=== PATIENT | female | born 2000 | race Caucasian/White ===

== ENCOUNTER 2022-06-06 05:23 | Inpatient (IN) ==
[~2022-06-06 05:23] MED LIST: *HR* Nalbuphine 10 MG/ML AMPUL ONE; Ondansetron 4 MG/2 ML VIAL ONE; Ringers Solution, Lactated 1,000 ML ONE
[2022-06-06] MEDS ORDERED: Epidural Premix (fent/bupiv) 110 ML EP ONE (05:37)
[2022-06-06] MEDS ORDERED: *HR* FentaNYL (PF) 100 MCG/2 ML VIAL ONE (05:38)
[2022-06-06] MEDS ORDERED: Ropivacaine/PF 0.2% 20 ML VIAL ONE (05:38)
[2022-06-06] MEDS ORDERED: Azithromycin 500 MG in 0.9 % Sodium Chloride 250 ML IVPB PRN (06:12)
[2022-06-06] MEDS ORDERED: *HR* Nalbuphine 10 MG/ML AMPUL IV PRN (06:12)
[2022-06-06] MEDS ORDERED: Famotidine 20 MG/2 ML VIAL IVP PRN (06:12)
[2022-06-06] MEDS ORDERED: Metoclopramide 10 MG/2 ML VIAL IVP PRN (06:12)
[2022-06-06] MEDS ORDERED: Naloxone 0.4 MG/ML INJ IVP PRN (06:12)
[2022-06-06] MEDS ORDERED: Ondansetron 4 MG/2 ML VIAL IVP PRN (06:12)
[2022-06-06] MEDS ORDERED: EPHEDrine sulfate 50 MG/10 ML VIAL IVP PRN (06:17)
[2022-06-06] MEDS ORDERED: Epidural Premix (fent/bupiv) 110 ML EP SCH (06:30)
[2022-06-06] MEDS ORDERED: Oxytocin 30 UNIT/503 ML BAG IVC ONE (08:20)
[2022-06-06] MEDS ORDERED: Ringers Solution, Lactated 1,000 ML IVC SCH (09:30)
[2022-06-06 15:20] LABS: Amphetamine Screen,Urine Negative ng/mL (Cutoff=1000); Barbiturate Screen,Urine Negative ng/mL (Cutoff=200); Benzodiazepines Screen,Urine Negative ng/mL (Cutoff=200); Cannabinoid Screen,Urine Negative ng/mL (Cutoff = 50); Cocaine Screen,Urine Negative ng/mL (Cutoff= 300); Opiate Screen,Urine Negative ng/mL (Cutoff=300); Phencyclidine Screen,Urine Negative ng/mL (Cutoff=25)
[2022-06-06] MEDS ORDERED: Measles/Mumps/Rubella Vacc 0.5 ML VIAL SQ PRN (16:05)
[2022-06-06] MEDS ORDERED: Benzocaine/Menthol 56 GM AEROSOL SPRAY TP PRN (16:05)
[2022-06-06] MEDS ORDERED: Lanolin 7 G OINT...G. TP PRN (16:05)
[2022-06-06] MEDS ORDERED: Ondansetron ODT 4 MG TAB.RAPDIS SL PRN (16:05)
[2022-06-06] MEDS ORDERED: Oxytocin 30 UNIT/503 ML BAG IVC SCH (16:05)
[2022-06-06] MEDS ORDERED: OXYTOCIN/RINGERS LACTATE 10 UNIT/166.6 ML BAG IVC ONE (16:05)
[2022-06-06] MEDS ORDERED: Rho Immune Globulin 1,500 UNIT SYRINGE IM PRN (16:05)
[2022-06-06] MEDS: Acetaminophen 325 MG TABLET PO SCH ×2 (16:52→21:04)
[2022-06-07] MEDS: Acetaminophen 325 MG TABLET PO SCH ×2 (02:47→08:29)
[2022-06-07 04:15] LABS: Basophils % 0.3 %; Eosinophils # 0.1 K/mcL (0.0-0.6); Eosinophils % 0.6 %; Hemoglobin 10.7 g/dL (11.5-15.4); Immature Granulocytes % 1.9 % (0-4); Lymphocytes # 1.4 K/mcL (0.6-4.6); Lymphocytes % 10.1 %; Mean Corpuscular HGB Conc 33.4 g/dL (31.6-35.5); Mean Corpuscular Volume 98.8 fL (83.0-100.0); Mean Platelet Volume 11.6 fL (9.4-12.4); Monocytes # 0.8 K/mcL (0.0-1.3); Monocytes % 5.4 %; Neutrophils # 11.7 K/mcL (1.6-8.9); Platelet Count 177 K/mcL (140-400); Red Blood Count 3.24 M/mcL (3.82-4.97); Red Cell Distribution Width 12.7 % (11.5-14.5); Segmented Neutrophils % 81.7 %; White Blood Count 14.3 K/mcL (4.3-11.1)
[2022-06-07 05:39] VITALS: O2SAT 99
[2022-06-07 07:01] VITALS: BP 103/68; PULSE 68; TEMP 97.6
[2022-06-07] MEDS ORDERED: Prenatal Vit/FA 1 EACH TABLET PO SCH (09:00)
[2022-06-07] MEDS ORDERED: Lurasidone 20 MG TABLET PO SCH (09:00)
== END 2022-06-07 14:44 | disposition home or self-care (01) | DRG 560 ==
LOC: 1NENULAB 05:23 → 1NENUOBS 16:03
PROVIDERS: ADMIT Registered Nurse; ATTEND Registered Nurse